=== PATIENT | female | born 1940 | race Caucasian/White ===

== ENCOUNTER 2023-03-08 19:54 | Emergency (ER) | payer OTHER ==
[2023-03-08 20:02] VITALS: BP 129/93; PULSE 93; RESP 18; TEMP 97.4; BMI 32.3
[2023-03-08] MEDS ORDERED: diphenhydrAMINE HCL 25 MG CAPSULE (FP) PO ONE ×2 (21:05→21:09)
[2023-03-08] MEDS ORDERED: FAMOTIDINE 20 MG TABLET PO ONE (21:05)
[2023-03-08] MEDS ORDERED: predniSONE 20 MG TABLET (UD) PO ONE (21:07)
[2023-03-08] MEDS ORDERED: CEPHALEXIN MONOHYDRATE 500 MG CAPSULE (UD) PO ONE (21:07)
[2023-03-08] MEDS ORDERED: predniSONE 20 MG TABLET (UD) ONE (21:10)
[2023-03-08] MEDS ORDERED: FAMOTIDINE 20 MG TABLET ONE (21:10)
[2023-03-08] MEDS ORDERED: CEPHALEXIN MONOHYDRATE 500 MG CAPSULE (UD) ONE (21:10)
== END 2023-03-08 21:30 | disposition home or self-care (01) ==
LOC: JERFT 19:54
DX: L50.0 Allergic urticaria (principal); T78.40XA Allergy, unspecified, initial encounter
CPT/HCPCS: 99283-25

== ENCOUNTER 2023-12-20 13:33 | Emergency (ER) | payer OTHER ==
[2023-12-20 13:39] VITALS: TEMP 97.4; BMI 32.8
[2023-12-20 15:11] LABS: BASO % 0.7 % (0-2.0); EOS % 1.8 % (0-4.5); HEMATOCRIT 38.3 % (32.4-45.2); LYMPH % 38.5 % (8-40); MCH 30.7 pg (25.7-33.7); MEAN CELL VOLUME 90.3 fl (80-96); MEAN PLT VOLUME 9.3 fl (7.5-11.1); MONO % 8.4 % (3.8-10.2); NEUT % 50.6 % (42.8-82.8); PLATELET COUNT 202 10^3/uL (134-434); RBC 4.24 M/mm3 (3.60-5.2); RDW 14.1 % (11.6-15.6); WHITE BLOOD COUNT 5.5 K/mm3 (4.0-10.0)
[2023-12-20 15:18] LABS: INR 1.3 (0.83-1.09); PROTHROMBIN TIME (PATIENT) 14.6 SEC (9.7-13.0)
[2023-12-20 15:31] LABS: POTASSIUM 4.1 mmol/L (3.5-5.1)
[2023-12-20 15:34] LABS: CALCIUM 9.9 mg/dL (8.5-10.1)
[2023-12-20 15:35] LABS: ALBUMIN 3.3 g/dl (3.4-5.0); BLOOD UREA NITROGEN 17.3 mg/dL (7-18); MAGNESIUM 2.1 mg/dL (1.8-2.4)
[2023-12-20 15:38] LABS: CREATININE 0.9 mg/dL (0.55-1.3)
[2023-12-20 15:40] LABS: BILIRUBIN,TOTAL 0.7 mg/dL (0.2-1); TOT PROT 6.9 g/dl (6.4-8.2)
[2023-12-20 16:46] LABS: EPI CELLS 23 /uL (0-25.1); HYALINE CASTS 0 /uL (0-3.1); PH,URINE 6.5 (5.0-8.0); URINE APPEARANCE CLEAR; URINE BACTERIA 141 /uL (0-1359); URINE BILIRUBIN NEGATIVE (NEGATIVE); URINE COLOR YELLOW; URINE GLUCOSE (UA) NEGATIVE (NEGATIVE); URINE KETONE NEGATIVE (NEGATIVE); URINE LEUK ESTERASE 1+ (NEGATIVE); URINE NITRITE NEGATIVE (NEGATIVE); URINE PROTEIN NEGATIVE (NEGATIVE); URINE RBC 10 /uL (0-23.9); URINE UROBILINOGEN 0.2 mg/dL (0.2-1.0); URINE WBC 38 /uL (0-25.8)
[2023-12-20 17:26] VITALS: BP 144/85; PULSE 80; RESP 16
== END 2023-12-20 16:45 | disposition home or self-care (01) ==
LOC: JER 13:33
DX: R26.81 Unsteadiness on feet (principal); R42 Dizziness and giddiness; R51.9 Headache, unspecified; Z20.822 Contact with and (suspected) exposure to COVID-19
CPT/HCPCS: 0241U-QW; 36415; 70450-TC; 71045-TC-FY; 80053; 81003; 83735; 84484; 85025; 85610; 86850; 86900; 86901; 87086; 93005; 93010; 99285-25

== ENCOUNTER 2024-04-29 12:57 | Emergency (ER) | payer OTHER ==
[2024-04-29 13:03] VITALS: BP 129/84; PULSE 86; RESP 18; TEMP 97.7; BMI 32.8
[2024-04-29] MEDS ORDERED: CEPHALEXIN MONOHYDRATE 500 MG CAPSULE (UD) PO ONE (15:19)
== END 2024-04-29 16:34 | disposition home or self-care (01) ==
LOC: JER 12:57
DX: N39.0 Urinary tract infection, site not specified (principal); R30.0 Dysuria
CPT/HCPCS: 99283-25

== ENCOUNTER 2024-07-09 18:13 | Emergency (ER) | payer OTHER ==
[2024-07-09 18:20] VITALS: BP 167/95; PULSE 89; RESP 22; TEMP 98.5; BMI 32.8
[2024-07-09 20:44] LABS: BASO % 0.5 % (0-2.0); HEMATOCRIT 41.6 % (32.4-45.2); HEMOGLOBIN 13.8 GM/dL (10.7-15.3); LYMPH % 33.7 % (8-40); MCH 31.1 pg (25.7-33.7); MCHC 33.2 g/dl (32.0-36.0); MEAN CELL VOLUME 93.7 fl (80-96); MEAN PLT VOLUME 9.2 fl (7.5-11.1); NEUT % 57.8 % (42.8-82.8); PLATELET COUNT 235 10^3/uL (134-434); RBC 4.44 M/mm3 (3.60-5.2); RDW 14.7 % (11.6-15.6); WHITE BLOOD COUNT 6.2 K/mm3 (4.0-10.0)
[2024-07-09] MEDS ORDERED: LIDOCAINE 5% TOPICAL PATCH ONE (20:53)
[2024-07-09] MEDS ORDERED: IBUPROFEN 400 MG TABLET (FP) PO ONE (20:53)
[2024-07-09] MEDS ORDERED: ACETAMINOPHEN INJECTION 100 ML ONE (20:53)
[2024-07-09 20:54] LABS: ACTIVATED PTT 33.9 SECONDS (25.2-36.5); INR 1.21 (0.83-1.09); PROTHROMBIN TIME (PATIENT) 13.3 SEC (9.7-13.0)
[2024-07-09 21:03] LABS: CALCIUM 10.2 mg/dL (8.5-10.1)
[2024-07-09 21:04] LABS: BLOOD UREA NITROGEN 16.3 mg/dL (7-18)
[2024-07-09 21:09] LABS: BILIRUBIN,TOTAL 1.1 mg/dL (0.2-1); TOT PROT 7.9 g/dl (6.4-8.2)
[2024-07-09] MEDS: LIDOCAINE 5% TOPICAL PATCH TP ONE (21:15)
[2024-07-09] MEDS: ACETAMINOPHEN 1000 MG/100 ML BAG IVPB ONE (21:15)
[2024-07-09] MEDS: IBUPROFEN 400 MG TABLET (FP) PO ONE (21:17)
[2024-07-09] MEDS ORDERED: LIDOCAINE PATCH REMOVAL MC SCH (22:00)
== END 2024-07-09 22:34 | disposition home or self-care (01) ==
LOC: JER 18:13
PROC: 3E033NZ Introduction of Analgesics, Hypnotics, Sedatives into Peripheral Vein, Percutaneous Approach (ICD-10-PCS; principal; 2024-07-09)
DX: R07.9 Chest pain, unspecified (principal); R20.2 Paresthesia of skin; M79.601 Pain in right arm
CPT/HCPCS: 36415; 71046-TC-FY; 73030-TC-RT-FY; 80053; 83735; 84484; 85025; 85610; 85730; 93005; 93010; 96374; 99285-25; J0131